=== PATIENT | male | born 1965 | race Caucasian/White ===

== ENCOUNTER → 2018-04-14 | Outpatient (CLI) | payer MEDICARE, OTHER ==
[~2018-04-14] MED LIST: ACET500; ADAL40PEN SC; ALBU2.5V5 NEB; ALBU90OI INH; ALLO100 PO; AMPDEX10CR; ASCO500 PO; ASPI81CH PO; ATOR40TA PO; BACL10 PO; BUME2 PO; BUSP10 PO; BUSP15 PO; Benadryl 50 mg50 MG PO; CIPRO500 MG PO; CLON1; CLOP75 PO; CREON DR 24,001 EACH PO; CYCL0.05OP; CYCL10 PO; Chantix0.5 MG PO; DOCU100 PO; DOXY100 PO; Ferus150 MG PO; Flagyl500 MG PO; Flonase 0.05% N16 GM; GABA100 PO; GABA300 PO; GABA400 PO; HYDR1TAB94 PO; Hair, Skin & N1 EACH PO; Isosorbide Mono30 MG PO; KETO10 PO; LEVO-T50 MCG PO; LOPE2C PO; LORA.5 PO; LOSA25 PO; LOSA50 PO; LOSARTAN POTASS50 MG PO; META800 PO; METO10 PO; METO50ER PO; MIRT15 PO; Meribin5 MG PO; Milk Of Ma400 MG/5 M PO; Mobic15 MG PO; NAPR500 PO; NEBI5 PO; NITR.8TP; Nitroglycerin0.4 MG SL; Norco 5-325 Ta1 EACH PO; OLAN5; OMEP20ER PO; OMEPRAZOLE MAGN20 MG PO; ONDA4ODT MM; Omeprazole20 M1 PO; Oxycodone-Apap1 EAC3 PO; PAIN & FEVER325 MG PO; PANT40 PO; PARI1 PO; PRED10 PO; PRED5 PO; Percocet 10-321 EACH PO; Percocet 5-3251 EACH PO; RANO500T PO; REGLAN10 MG PO; RXTRAM50 PO; Requip0.5 MG PO; SIMV40 PO; TAMS.4ER PO; TOUJEO SOL300 UNIT/1 SC; TRAM50 PO; Tylenol325 MG PO; VARE1 PO; Zofran Odt4 MG SL; Zofran4 MG PO
[2018-04-14 16:26] LABS: BASOPHILS ABSOLUTE AUTO 0.03 K/mm3 (0.00-0.23); BASOPHILS PERCENT AUTO 0 % (0-2); EOSINOPHILS ABSOLUTE AUTO 0.22 K/mm3 (0.00-0.68); EOSINOPHILS PERCENT AUTO 2 % (0-6); Hematocrit 42.9 % (37.0-53.0); Hemoglobin 14.2 g/dL (13.5-17.5); IMMATURE GRAN ABSOLUTE AUTO 0.02 K/mm3 (0.00-0.10); IMMATURE GRAN PERCENT AUTO 0 % (0-1); LYMPHOCYTES ABSOLUTE AUTO 3.17 K/mm3 (0.84-5.20); LYMPHOCYTES PERCENT AUTO 35 % (21-46); MONOCYTES ABSOLUTE AUTO 0.47 K/mm3 (0.16-1.47); MONOCYTES PERCENT AUTO 5 % (4-13); Mean Corpuscular HGB 29.8 pg (26.0-34.0); Mean Corpuscular HGB Conc 33.1 g/dL (31.5-36.5); Mean Corpuscular Volume 90 fL (80-100); Mean Platelet Volume 9.2 fL (9.1-12.4); NEUTROPHILS ABSOLUTE AUTO 5.16 K/mm3 (1.96-9.15); NEUTROPHILS PERCENT AUTO 57 % (41-73); Platelet Count 219 K/mm3 (150-400); RDW Standard Deviation 35.8 fL (35.1-46.3); Red Blood Cell Count 4.77 M/mm3 (4.30-5.90); White Blood Cell Count 9.07 K/mm3 (4.00-11.30)
[2018-04-14 16:43] LABS: Alanine Aminotransfer (ALT/SGP 21 U/L (12-78); Albumin/Globulin Ratio 1.2 (0.8-1.8); Alk Phos 85 U/L (50-136); Anion Gap 8 mmol/L (6-16); Aspartate Aminotrans (AST/SGOT 15 U/L (12-37); Bilirubin, Total 0.5 mg/dL (0.1-1.0); Blood Urea Nitrogen 12 mg/dL (8-24); Bun/Creatinine Ratio 12.3 (12.0-20.0); CHOL/HDL RATIO 2.6; CO2, Blood 30 mmol/L (21-32); Calcium, Blood 8.8 mg/dL (8.5-10.1); Chloride, Blood 102 mmol/L (98-108); Cholesterol 134 mg/dL (50-200); Creatinine, Blood 0.98 mg/dL (0.60-1.20); Globulin, Blood 3.4 g/dL (2.2-4.0); Glomerular Filtration Rate >60 (60-); Glucose, Blood 99 mg/dL (70-99); HDL Cholesterol 52 mg/dL (>39); LDL/HDL RATIO 1.1; Low Density Lipoprotein Chol 55 mg/dL (0-110); Potassium, Blood 3.8 mmol/L (3.5-5.5); Prostate Specific Antigen 0.603 ng/mL (0.000-4.000); Sodium, Blood 140 mmol/L (136-145); Total Protein, Blood 7.4 g/dL (6.4-8.2); Triglycerides 133 mg/dL (30-160); Very Low Density Lipoprot Chol 26 mg/dL (6-32)
== END | disposition home or self-care (01) ==
LOC: LAB 14:40 → LAB SHORT 14:40
DX: E78.5 Hyperlipidemia, unspecified (principal); F15.10 Other stimulant abuse, uncomplicated; I10 Essential (primary) hypertension; N40.1 Benign prostatic hyperplasia with lower urinary tract symptoms; Z80.42 Family history of malignant neoplasm of prostate
CPT/HCPCS: 80053; 80061; 84153; 85025

== ENCOUNTER 2019-09-07 08:56 | Day surgery (SDC) | payer MEDICARE, OTHER ==
[~2019-09-07 08:56] MED LIST changes: +AMLO5 PO; +ATOR20 PO; +Aspir 8181 MG PO; +Buspirone HCl15 MG PO; +METO50 PO
== END 2019-09-07 11:45 | disposition home or self-care (01) ==
PROVIDERS: Internal Medicine Gastroenterology
PROC: 0D758ZZ Dilation of Esophagus, Via Natural or Artificial Opening Endoscopic (ICD-10-PCS; principal; 2019-09-07 10:00)
PROC: 0DB98ZX Excision of Duodenum, Via Natural or Artificial Opening Endoscopic, Diagnostic (ICD-10-PCS; principal; 2019-09-07 10:00)
PROC: 0DB68ZX Excision of Stomach, Via Natural or Artificial Opening Endoscopic, Diagnostic (ICD-10-PCS; principal; 2019-09-07 10:00)
PROC: 0DB58ZX Excision of Esophagus, Via Natural or Artificial Opening Endoscopic, Diagnostic (ICD-10-PCS; principal; 2019-09-07 10:00)
DX: R13.10 Dysphagia, unspecified (principal); B37.81 Candidal esophagitis; I10 Essential (primary) hypertension; I25.10 Atherosclerotic heart disease of native coronary artery without angina pectoris; F17.210 Nicotine dependence, cigarettes, uncomplicated; Z79.82 Long term (current) use of aspirin; Z79.899 Other long term (current) drug therapy; K29.80 Duodenitis without bleeding

== ENCOUNTER → 2019-12-16 | Outpatient (CLI) | payer MEDICARE, OTHER | LOC: PLD 07:48 → LAB SHORT 07:48 | DX: D22.5 Melanocytic nevi of trunk (principal); L57.0 Actinic keratosis | CPT/HCPCS: 88305 ==